=== PATIENT | female | born 1960 | race Caucasian/White ===

== ENCOUNTER → 2018-12-16 | Outpatient (CLI) | payer OTHER, SELFPAY ==
[2018-11-29 15:04] VITALS: BMI 41.6
--- NOTE | 2018-12-16 | IMM_PTH ---
PATIENT: SALINA ALDRICH LOC: [facility] U#:[id number] AGE/SX: 58/F ROOM: RE12/16/[address]: Dr. Alphonse Boudreaux MD : 1960 BED: DIS: 12/16/2018 SPEC #: [id number] RECD: 12/20/18 12:23 STATUS: SOCORRO REJuju #: [id number] NAYA: 12/16/18 00:[address]: Alphonse Boudreaux DEPT: IMMUNOHISTOCHEMISTRY RECD BY: Mary Farooq ENTERED: 12/20/18 12:24 SP TYPE: IMMUNO OTHR DR: Dr. Araceli Sanchez MD Tissues: Stomach, NOS Procedures: H Pylori (initial) CD20 (add) CD45 (add) CD5 (add) CD79A (add) CD3 (initial) PHYSICIAN & INSTITUTION [place] [id number] SPECIMEN INFORMATION: Tissue Source: Gastric antrum body Clinical Info: Abdominal pain Specimen Number: [id number] CPT code: 16836, 58000 x5 METHODOLOGY: Deparaffinized sections of prefer/formalin-fixed tissue or PAP/DQ stained slides are incubated with monoclonal/polyclonal antibodies/oligonucleotide probes. Localization is made via biotin free immunoperoxidase method. Appropriate controls are performed and reacted as expected. Results on target cell population are indicated in the following table: RESULTS: ANTIBODY / CLONE RESULT CD3 (PS1) positive CD5 (SP10) positive CD20 (L26) positive CD79a (11E3) positive CD45 (RP2/18) positive H Pylori (polyclonal) negative These tests were developed and their performance characteristics determined by [facility]. They may not have been cleared or approved by the U.S. Food and Drug Administration. The FDA has determined that such clearance or approval is not necessary. INTERPRETATION: Gastric antrum/body, biopsy: Lymphoid aggregate, polytypic in nature, favor benign. This case has been reviewed in consultation with Dr. Villegas who concurs with the above diagnosis. SJ:pamela 12/21/18
--- NOTE | 2018-12-16 07:58 | EGD_PTH ---
PATIENT: SALINA ALDRICH [facility] U#:[id number] AGE/SX: 58/F ROOM: RE12/16/[address]: Dr. Alphonse Boudreaux MD : 1960 BED: DIS: 12/16/2018 SPEC #: [id number] RECD: 12/16/18 15:21 STATUS: SOCORRO REJuju #: [id number] NAYA: 12/16/18 07:[address]: Alphonse Boudreaux DEPT: SURGICAL PATHOLOGY RECD BY: Palu Shrestha ENTERED: 12/19/18 10:21 SP TYPE: EGD BIOPSY OT DR: Dr. Araceli Sanchez MD [facility] Tissues: Gastric mucous membrane Procedures: Surgery Specimen Level IV HEADER OPERATION: EGD with biopsy PRE-OP DIAGNOSIS: Abdominal pain TISSUE SUBMITTED: Gastric antrum body MICROSCOPIC DIAGNOSIS Gastric antrum body, biopsy: Moderate chronic gastritis. Lymphoid aggregate formation, favor benign. See comment. SJ:pamela 12/20/18 COMMENT Lymphoepithelial lesions are also noted. Immunohistochemistry ([id number]) supports the above diagnosis, and negative for H. pylori organisms. Correlation with clinical, endoscopic findings and appropriate follow up are necessary. Case has been reviewed in consultation with Dr. Villegas who concurs with the above diagnosis. IDC:AM MICROSCOPIC DESCRIPTION Slides are reviewed. GROSS DESCRIPTION Received in fixative is one container labeled with the patient's name and designated gastric antrum body. The specimen consists of multiple irregular fragments of light welsh soft tissue that in aggregate measure 2 x 0.4 x 0.1 cm. The specimen is totally submitted in one cassette. / CAM:pamela 12/19/18 TC:3 CPT: 78020
== END | disposition home or self-care (01) ==
LOC: LABSPEC 15:44
PROVIDERS: Family Provider Internal Medicine; PCP Internal Medicine; Referring Provider Internal Medicine Gastroenterology; Visit Provider Internal Medicine Gastroenterology
DX: R10.9 Unspecified abdominal pain (principal)
CPT/HCPCS: 88305; 88341; 88342

== ENCOUNTER → 2019-01-04 | Outpatient (CLI) | payer OTHER, SELFPAY ==
[2018-11-29 15:04] VITALS: BMI 41.6
[2019-01-04 12:22] LABS: Absolute Lymphocyte Count 2.45 X10^3/ul (0.83-4.51); Absolute Neutrophil Count 2.8 X10^3/uL (2.0-7.7); Basophil# 0.02 X10^3/uL; Basophil% 0.3 % (0-1); Eosinophil# 0.18 X10^3/uL; Hematocrit 39.5 % (37-47); Hemoglobin 12.2 g/dl (12.0-15.0); Lymphocyte # 2.45 X10^3/ul (4.0); Lymphocyte % 41.5 % (19-41); Mean Corp Hgb Conc 30.9 g/gl (32-36); Mean Corpuscular Hgb 26.6 pg (27.0-32.0); Mean Corpuscular Volume 86.1 fL (81-99); Mean Platelet Vol. 10.4 fl (6.2-12.0); Monocyte# 0.46 X10^3/uL; Monocyte% 7.8 % (0-10); Neutrophil # 2.79 X10^3/uL (2.7-7.7); Neutrophil % 47.2 % (47-70); Platelet Count 325 K/mm3 (150-450); RBC Distribution Width CV 13.6 % (11.6-14.6); Red Blood Count 4.59 M/mm3 (4.2-5.4); White Blood Count 5.9 K/mm3 (4.4-11.0)
[2019-01-04 12:28] LABS: POSITIVE COUNT NO; POSITIVE DIFFERENTIAL NO; POSITIVE MORPHOLOGY NO
[2019-01-04 12:37] LABS: AST(SGOT) 24 U/L (15-37); Alanine Aminotransfer ALT/SGPT 38 U/L (13-56); Albumin, Serum 3.7 g/dL (3.2-5.0); Alkaline Phosphatase 60 U/L (45-117); Anion Gap 6 (5-15); BUN 17 mg/dL (7-18); Calcium,Total 8.5 mg/dL (8.5-10.1); Chloride 107 mmol/L (98-107); Cholesterol 165 mg/dL (200); EST Glomerular Filtration Rate 61 mL/min (>60); Est Glom Filt Rate - Afr Amer 73 mL/min (>60); Globulin 3.7 g/dL (2.2-4.2); Glucose 105 mg/dL (74-106); High Density Lipoprotein 55 mg/dL; Potassium 4.5 mmol/L (3.5-5.1); Protein, Total 7.4 g/dL (6.4-8.2); Sodium Level 140 mmol/L (136-145); Triglycerides 74 mg/dL; Very Low Density Lipoprotein 15 mg/dL (5-40)
[2019-01-04 12:58] LABS: Hemoglobin A1c 5.5 % (4.2-6.3)
== END | disposition home or self-care (01) ==
LOC: BIMLAB 08:11
PROVIDERS: Family Provider Internal Medicine; PCP Internal Medicine; Visit Provider Internal Medicine
DX: I10 Essential (primary) hypertension (principal); K21.9 Gastro-esophageal reflux disease without esophagitis; R73.03 Prediabetes
CPT/HCPCS: 36415; 80053; 80061; 83036; 85025

== ENCOUNTER → 2019-02-03 | Outpatient (CLI) | payer OTHER, SELFPAY ==
[2019-01-10 10:05] VITALS: BMI 41.6
--- NOTE | 2019-02-02 17:00 | BI_ITS ---
MAMMOGRAPHY - BILATERAL SCREENING REASON FOR EXAM: Female, 58 years old. Routine annual screening examination. PERTINENT HISTORY: Mother with breast cancer. TECHNIQUE: Digital bilateral breast pauly (3D mammographic acquisition) in the CC and MLO projections. 2-D mediolateral oblique (MLO) and craniocaudad (CC) views of both breasts were obtained. CAD: Full Field Digital Mammography with Computer Added Detection was performed. COMPARISON: Comparison is made with prior study dated May 26, 2017 and August 08, 2015. FINDINGS: Breast Composition: There are scattered areas of fibroglandular density. There are no dominant masses or suspicious calcifications. No other significant abnormalities are identified. There has been no significant change since the prior study. BI/SCREEN MAMM (CAD) W/PAULY BILAT IMPRESSION: Stable bilateral screening mammogram. Yearly follow-up mammogram recommended. (A) ASSESSMENT CATEGORY: BIRADS Category 1: Negative. A letter regarding these results will be sent to the patient by the facility within 30 days. Approximately 10% of breast cancers are not detected by mammography. A normal mammogram should not delay biopsy of a clinically suspicious abnormality. [id number] Electronically Signed: Elkin Rae, at 8:31 EDT , Service support ,
== END | disposition home or self-care (01) ==
LOC: OPBI 07:42
PROVIDERS: Family Provider Internal Medicine; PCP Internal Medicine; Referring Provider Internal Medicine; Visit Provider Internal Medicine
DX: Z00.00 Encounter for general adult medical examination without abnormal findings (principal); Z12.31 Encounter for screening mammogram for malignant neoplasm of breast
CPT/HCPCS: 77063; 77067

== ENCOUNTER → 2019-05-09 08:53 | Outpatient (CLI) | payer OTHER, SELFPAY ==
[2019-05-09 08:36] VITALS: BMI 40.2
[2019-05-09 13:12] LABS: Anion Gap 7 (5-15); BUN 14 mg/dL (7-18); BUN/Creat Ratio 13.3 RATIO (10-20); Calcium,Total 8.7 mg/dL (8.5-10.1); Chloride 106 mmol/L (98-107); Creatinine, Serum 1.05 mg/dL (0.55-1.02); EST Glomerular Filtration Rate 57 mL/min (>60); Est Glom Filt Rate - Afr Amer 69 mL/min (>60); Glucose 99 mg/dL (74-106); Potassium 4.3 mmol/L (3.5-5.1); Sodium Level 138 mmol/L (136-145)
== END ==
PROVIDERS: Family Provider Internal Medicine; PCP Internal Medicine; Visit Provider Internal Medicine
DX: I10 Essential (primary) hypertension (principal)
CPT/HCPCS: 36415; 80048

== ENCOUNTER → 2019-06-21 07:52 | Outpatient (CLI) | payer OTHER, SELFPAY ==
[2019-05-09 08:36] VITALS: BMI 40.2
--- NOTE | 2019-06-21 07:54 | CT_ITS ---
STUDY: CT ABDOMEN AND PELVIS WITH CONTRAST REASON FOR EXAM: Female, 59 years old. Mesenteric lymphadenopathy. RADIATION DOSAGE (If Supplied By Facility): CTDIvol = ( 16.82 ) mGy, DLP = ( 1173.49 ) mGycm TECHNIQUE: Transaxial images were obtained from the dome of the diaphragm to the symphysis pubis with oral contrast. IV/Oral Isovue 370 100cc was administered. Sagittal and coronal images were reconstructed. Individualized dose optimization techniques were used for this CT. COMPARISON: Comparison is made with prior study dated August 12, 2015. FINDINGS: The visualized lung bases are unremarkable. The visualized portions of the heart are within normal limits. There is decreased attenuation of the liver consistent with steatosis. Normal gallbladder and extrahepatic biliary system. Normal spleen. Normal pancreas. Normal bilateral adrenal glands. Normal right kidney. Normal left kidney. There is a small hiatal hernia. Normal small intestine. Normal colon. The appendix is visualized and appears normal. Normal abdominal aorta. Normal inferior vena cava. There is borderline retroperitoneal lymphadenopathy with enlarged nodes no greater than 10mm in the short axis diameter. Normal urinary bladder. There is a small umbilical hernia containing fat. There are degenerative changes of the visualized lumbar spine. Stable 3 cm exostosis along the posterior aspect of the left hemisacrum. CT/Abdomen/Pelvis WITH Contrast IMPRESSION: Fatty attrition of the liver. No acute abnormality is seen. Electronically Signed: Elkin Rae, at 15:13 EDT , Service support ,
== END ==
PROVIDERS: Family Provider Internal Medicine; PCP Internal Medicine; Referring Provider Internal Medicine; Visit Provider Internal Medicine
DX: R59.0 Localized enlarged lymph nodes (principal); R93.5 Abnormal findings on diagnostic imaging of other abdominal regions, including retroperitoneum
CPT/HCPCS: 74177; Q9967

== ENCOUNTER → 2019-08-08 08:40 | Outpatient (CLI) | payer OTHER, SELFPAY ==
[2019-08-08 08:21] VITALS: BMI 40.2
[2019-08-08 12:21] LABS: Anion Gap 5 (5-15); BUN 18 mg/dL (7-18); BUN/Creat Ratio 16.4 RATIO (10-20); Calcium,Total 8.3 mg/dL (8.5-10.1); Chloride 109 mmol/L (98-107); EST Glomerular Filtration Rate 54 mL/min (>60); Est Glom Filt Rate - Afr Amer 66 mL/min (>60); Glucose 93 mg/dL (74-106); Potassium 3.9 mmol/L (3.5-5.1); Sodium Level 141 mmol/L (136-145)
[2019-08-08 12:27] LABS: Hemoglobin A1c 5.8 % (4.2-6.3)
== END ==
PROVIDERS: Family Provider Internal Medicine; PCP Internal Medicine; Visit Provider Internal Medicine
DX: I10 Essential (primary) hypertension (principal); R73.03 Prediabetes
CPT/HCPCS: 36415; 80048; 83036

== ENCOUNTER → 2019-10-23 | Outpatient (CLI) | payer OTHER, SELFPAY ==
[2019-10-23 15:01] VITALS: BMI 40.2
[2019-10-25 20:21] LABS: HPV APTIMA, High Risk Negative (Negative)
== END | disposition home or self-care (01) ==
LOC: LABSPEC 16:19
PROVIDERS: PCP Internal Medicine; Referring Provider Nurse Practitioner Women's Health; Visit Provider Nurse Practitioner Women's Health
DX: Z12.4 Encounter for screening for malignant neoplasm of cervix (principal)
CPT/HCPCS: 87624; 88175; G0145

== ENCOUNTER 2020-04-17 13:36 | Emergency (ER) | payer OTHER, SELFPAY ==
[2019-10-23 15:01] VITALS: BMI 40.2
[2020-04-17 13:38] VITALS: BP 149/95; PULSE 98; RESP 14; TEMP 36.4; O2SAT 98; BMI 45.3
[2020-04-17 13:43] VITALS: BP 149/95; PULSE 98; RESP 17; O2SAT 97
--- NOTE | 2020-04-17 14:34 | RAD_ITS ---
STUDY: X-RAY - LEFT ELBOW REASON FOR EXAM: Female, 59 years old. Pt. fell, pain TECHNIQUE: 2 view(s) of the elbow. COMPARISON: None. FINDINGS: Acute comminuted posteriorly displaced oblique fracture of the proximal ulna including the olecranon. Normal radiocapitellar and ulnotrochlear articulations. The soft tissue structures are unremarkable. RAD/Elbow min 3 Views IMPRESSION: Acute comminuted posteriorly displaced oblique fracture the proximal ulna. Electronically Signed: Zak Seay MD at 14:53 EDT Tel , Service support ,
--- NOTE | 2020-04-17 14:39 | ED.DCSUM_ITS ---
History of Present Illness Chief Complaint: Fall Informant: Patient Onset: Today Narrative: 59-year-old female presenting with left elbow pain. She states she had a mechanical fall and fell directly on her left elbow. She denies head injury or LOC. She states she was unable to get up due to the elbow pain. She states EMS was there within 5 to 6 minutes and helped her up after putting a splint on. - Past Medical History (1) Family history of Bedolla syndrome Status: Acute Comment: Maternal uncle-patient tested negative (2) Borderline type 2 diabetes mellitus Status: Chronic (3) Fatty infiltration of liver Status: Chronic (4) GERD (gastroesophageal reflux disease) Status: Chronic (5) Hypertension Status: Chronic Past Medical History - Allergies and Home Meds Allergies/Adverse Reactions: Allergies No Known Allergies Allergy (Verified 04/17/20 13:42) Primary Care Physician: Araceli Sanchez MD [Primary Care Provider] - Prior records reviewed: Yes Past Medical History: - - Reviewed under problem list Surgical History: noncontributory Smoking Status: Never smoker Alcohol: None Drugs: None Review of Systems General: Denies: Chills, Fever, Sweats Eyes: Denies: Visual changes - bilaterally, Diplopia ENT: Denies: Rhinorrhea, Sore throat Cardiovascular: Denies: Chest pain, Palpitations Respiratory: Denies: Dyspnea, Cough, Dyspnea on exertion Genitourinary: Denies: Dysuria, Hematuria Musculoskeletal: Reports: Extremity Pain - Left elbow. Denies: Back pain Skin: Denies: Rash, Abscess Neurological: Denies: Headache Psych: Denies: Depression, Anxiety Physical Exam Vital Signs/Narrative: Vital Signs Temp Pulse Resp BP Pulse Ox 04/17/20 13:43 98 17 149/95 H 97 04/17/20 13:38 97.6 F L 98 14 149/95 H 98 Inital Vital Signs reviewed: Yes General: Well nourished, No Acute Distress Head: Normocephalic, Atraumatic Eyes: Perrl, EOMI Cardiovascular: Regular rate, Regular rhythm Respiratory: No distress Extremities: - - Tenderness to palpation over left olecranon and generally over the left elbow. There is deformity. Patient unable to move left elbow. Exam is limited due to pain when examining. Skin: Normal color, No rash Neurological: Alert, Oriented x3 Psychological: Normal affect Diagnostic/Tx/Re-eval Clinical Impression(s) from Imaging Studies Elbow X-Ray 04/17/20 14:34 IMPRESSION: Acute comminuted posteriorly displaced oblique fracture the proximal ulna. Electronically Signed: Zak Seay MD at 14:53 EDT Tel , Service support , - Medical Decision Making Patient presents with left elbow pain after mechanical fall. She is found to have proximal ulnar fracture per radiology. I did discuss the case with Dr. Alcala reviewed the films and felt this was an unstable fracture dislocation. She felt the small radius was dislocated and in conjunction with the ulnar fracture she felt this was not a case that she was amenable to treating. She recommended transfer to a place where they can perform necessary surgery for this. Initially she wanted me to place the person in a splint however I did discuss with her that I would have to consciously sedate her to perform this given her pain. Given that she will be transferred and consciously sedated again at outside facility for similar procedure she did and recommended that I just wrap her in place an immobilizer as much as possible until she can get definitive treatment. Patient was given morphine for pain control. She was consented to transfer and transferred in stable condition to [facility]. Impression: 1. Left ulnar fracture 2. Left radial head dislocation ED Disposition - Plan for ED Patient: Disposition: [facility] Referrals: Araceli Sanchez MD [Primary Care Provider] -
[2020-04-17] MEDS: Ondansetron 4 MG/2 ML Vial IV (15:33)
[2020-04-17] MEDS: Morphine 4 MG/ML Syringe IV ×2 (15:34→16:33)
[2020-04-17 16:36] VITALS: BP 138/86; PULSE 106; RESP 18; O2SAT 96
--- NOTE | 2020-04-17 16:37 | NURSING ---
CALLED [facility] FOR TRANSFER
== END 2020-04-17 17:59 | disposition short-term general hospital (02) ==
LOC: ED 15:17
PROVIDERS: Emergency Provider Student in an Organized Health Care Education/Training Program; PCP Internal Medicine
DX: S52.002A Unspecified fracture of upper end of left ulna, initial encounter for closed fracture (principal); S53.005A Unspecified dislocation of left radial head, initial encounter; W19.XXXA Unspecified fall, initial encounter; Y93.9 Activity, unspecified; Y92.9 Unspecified place or not applicable; I10 Essential (primary) hypertension; K76.0 Fatty (change of) liver, not elsewhere classified; K21.9 Gastro-esophageal reflux disease without esophagitis; Z79.899 Other long term (current) drug therapy
CPT/HCPCS: 73080; 96374; 96375; 96376; 99284; A4216; J2405

== ENCOUNTER → 2021-04-28 08:36 | Outpatient (CLI) | payer OTHER, SELFPAY ==
--- NOTE | 2021-04-28 09:03 | BI_ITS ---
MAMMOGRAPHY - BILATERAL SCREENING 3-D TOMOSYNTHESIS REASON FOR EXAM: Female, 60 years old. screening PERTINENT HISTORY: No significant family history. TECHNIQUE: 2-D mammograms and 3-D Tomosynthesis of the breast (s) were performed. CAD was performed. COMPARISON: 02/02/2019 FINDINGS: The breast composition is composed of scattered fibroglandular density. Scattered benign calcifications are seen. No dense spiculated masses or suspicious microcalcifications are identified. No architectural distortion is identified. There is no skin thickening or retraction. There has been no significant change since the prior study. BI/SCRN MAMM (CAD)W/PAULY BILAT IMPRESSION: No mammographic signs of malignancy. Routine yearly mammograms recommended. ASSESSMENT CATEGORY: BIRADS Category 1: Negative. A letter regarding these results will be sent to the patient by the facility within 30 days. FOLLOW UP RECOMMENDATION: Yearly follow up mammogram recommended. (A) Approximately 10% of breast cancers are not detected by mammography. A normal mammogram should not delay biopsy of a clinically suspicious abnormality. Electronically Signed: Zak Seay MD at 10:14 EDT Tel , Service support ,
== END ==
PROVIDERS: PCP Internal Medicine; Visit Provider Internal Medicine
DX: Z12.31 Encounter for screening mammogram for malignant neoplasm of breast (principal)
CPT/HCPCS: 77063; 77067

== ENCOUNTER → 2021-05-14 11:39 | Outpatient (CLI) | payer OTHER, SELFPAY ==
[2021-05-14 14:58] LABS: Absolute Lymphocyte Count 2.72 X10^3/uL (0.83-4.51); Absolute Neutrophil Count 3.6 X10^3/uL (2.0-7.7); Basophil# 0.05 X10^3/uL; Basophil% 0.7 % (0-1); Eosinophil# 0.16 X10^3/uL; Eosinophils% 2.2 % (0-5); Hematocrit 44.7 % (37-47); Hemoglobin 13.7 g/dL (12.0-15.0); Lymphocyte # 2.72 X10^3/ul (0.83-4.51); Lymphocyte % 37.8 % (19-41); Mean Corp Hgb Conc 30.6 g/dL (32-36); Mean Corpuscular Hgb 27.8 pg (27.0-32.0); Mean Corpuscular Volume 90.7 fL (81-99); Mean Platelet Vol. 10.7 fl (6.2-12.0); Monocyte# 0.69 X10^3/uL; Monocyte% 9.6 % (0-10); NRBC Flagged by Analyzer 0 % (0-5); Neutrophil # 3.56 X10^3/uL (2.7-7.7); Neutrophil % 49.4 % (47-70); Platelet Count 323 K/mm3 (150-450); RBC Distribution Width CV 13.4 % (11.6-14.6); RBC Distribution Width SD 45.1 fl (35.1-43.9); Red Blood Count 4.93 M/mm3 (4.2-5.4); White Blood Count 7.2 K/mm3 (4.4-11.0)
[2021-05-14 15:29] LABS: Hemoglobin A1c 5.7 % (3.8-5.6)
[2021-05-14 15:36] LABS: ALB/GLOB Ratio 0.9 RATIO (0.9-2.4); AST(SGOT) 26 U/L (15-37); Alanine Aminotransfer ALT/SGPT 47 U/L (13-56); Albumin, Serum 3.6 g/dL (3.2-5.0); Alkaline Phosphatase 55 U/L (45-117); Anion Gap 5 (5-15); BUN 15 mg/dL (7-18); BUN/Creat Ratio 15.9 RATIO (10-20); Calcium,Total 8.8 mg/dL (8.5-10.1); Chloride 107 mmol/L (98-107); Cholesterol 198 mg/dL (200); Creatinine, Serum 0.94 mg/dL (0.55-1.02); EST Glomerular Filtration Rate 64 mL/min (>60); Est Glom Filt Rate - Afr Amer 78 mL/min (>60); Globulin 3.9 g/dL (2.2-4.2); Glucose 93 mg/dL (74-106); High Density Lipoprotein 64 mg/dL; Potassium 4.1 mmol/L (3.5-5.1); Protein, Total 7.5 g/dL (6.4-8.2); Sodium Level 140 mmol/L (136-145); Triglycerides 118 mg/dL; Very Low Density Lipoprotein 24 mg/dL (5-40)
== END ==
PROVIDERS: PCP Internal Medicine; Referring Provider Internal Medicine; Visit Provider Internal Medicine
DX: I10 Essential (primary) hypertension (principal); R73.03 Prediabetes
CPT/HCPCS: 36415; 80053; 80061; 83036; 85025

== ENCOUNTER → 2022-05-12 | Outpatient (CLI) | payer OTHER, SELFPAY ==
[2022-05-12 16:42] LABS: Absolute Lymphocyte Count 3.07 X10^3/uL (0.83-4.51); Absolute Neutrophil Count 4.2 X10^3/uL (2.0-7.7); Basophil# 0.05 X10^3/uL; Basophil% 0.6 % (0-1); Eosinophil# 0.24 X10^3/uL; Hematocrit 45.1 % (37-47); Hemoglobin 14.5 g/dL (12.0-15.0); Lymphocyte # 3.07 X10^3/ul (0.83-4.51); Mean Corp Hgb Conc 32.2 g/dL (32-36); Mean Corpuscular Hgb 28.7 pg (27.0-32.0); Mean Corpuscular Volume 89.1 fL (81-99); Mean Platelet Vol. 9.8 fl (6.2-12.0); Monocyte# 0.54 X10^3/uL; Monocyte% 6.7 % (0-10); NRBC Flagged by Analyzer 0 % (0-5); Neutrophil # 4.15 X10^3/uL (2.7-7.7); Neutrophil % 51.5 % (47-70); Platelet Count 302 K/mm3 (150-450); RBC Distribution Width CV 13.4 % (11.6-14.6); RBC Distribution Width SD 43.8 fl (35.1-43.9); Red Blood Count 5.06 M/mm3 (4.2-5.4); White Blood Count 8.1 K/mm3 (4.4-11.0)
[2022-05-12 18:32] LABS: AST(SGOT) 20 U/L (15-37); Alanine Aminotransfer ALT/SGPT 34 U/L (13-56); Albumin, Serum 3.7 g/dL (3.2-5.0); Alkaline Phosphatase 61 U/L (45-117); Anion Gap 6 (5-15); BUN 18 mg/dL (7-18); BUN/Creat Ratio 21.4 RATIO (10-20); Chloride 107 mmol/L (98-107); Cholesterol 200 mg/dL (200); Creatinine, Serum 0.84 mg/dL (0.55-1.02); EST Glomerular Filtration Rate 73 mL/min (>60); Est Glom Filt Rate - Afr Amer 88 mL/min (>60); Globulin 3.8 g/dL (2.2-4.2); Glucose 91 mg/dL (74-106); High Density Lipoprotein 64 mg/dL; Potassium 4.3 mmol/L (3.5-5.1); Protein, Total 7.5 g/dL (6.4-8.2); Sodium Level 140 mmol/L (136-145); Triglycerides 142 mg/dL; Very Low Density Lipoprotein 28 mg/dL (5-40)
== END | disposition home or self-care (01) ==
LOC: BIMLAB 15:51
PROVIDERS: PCP Internal Medicine; Referring Provider Internal Medicine; Visit Provider Internal Medicine
DX: I10 Essential (primary) hypertension (principal)
CPT/HCPCS: 36415; 80053; 80061; 85025

== ENCOUNTER → 2022-05-27 | Outpatient (CLI) | payer OTHER, SELFPAY ==
--- NOTE | 2022-05-27 10:31 | BI_ITS ---
MAMMOGRAPHY - BILATERAL SCREENING REASON FOR EXAM: Female, 62 years old. Routine annual screening examination. PERTINENT HISTORY: Mother with breast cancer. TECHNIQUE: Digital bilateral breast pauly (3D mammographic acquisition) in the CC and MLO projections. 2-D mediolateral oblique (MLO) and craniocaudad (CC) views of both breasts were obtained. CAD: Full Field Digital Mammography with Computer Added Detection was performed. COMPARISON: Comparison is made with prior study dated 04/28/2021 and 02/02/2019. FINDINGS: Breast Composition: There are scattered areas of fibroglandular density. There are no dominant masses or suspicious calcifications. No other significant abnormalities are identified. There has been no significant change since the prior study. BI/SCRN MAMM (CAD)W/PAULY BILAT IMPRESSION: Stable bilateral screening mammogram. Yearly follow-up mammogram recommended. (A) ASSESSMENT CATEGORY: BIRADS Category 1: Negative. A letter regarding these results will be sent to the patient by the facility within 30 days. Approximately 10% of breast cancers are not detected by mammography. A normal mammogram should not delay biopsy of a clinically suspicious abnormality. [id number] Electronically Signed: Elkin Rae MD at 11:39 EDT ,
--- NOTE | 2022-05-27 10:36 | BD_ITS ---
STUDY: DUAL ENERGY X-RAY ABSORPTIOMETRY / DXA REASON FOR EXAM: Female, 62 years old. Post Menopausal TECHNIQUE: Bone Mineral Density (BMD) measurements of lumbar spine and bilateral hips were obtained. COMPARISON: Comparison is made with prior examination dated 05/26/2017. FINDINGS: Lumbar Spine (L1-L4): g/cm2 (1.157) / T-score (0.7) / Z-score (2.2) Findings are suggestive of normal bone density with a low fracture risk. Left Femur Total: g/cm2 (0.901) / T-score (-0.3) / Z-score (0.7) Left Femoral Neck: g/cm2 (0.727) / T-score (-1.1) / Z-score (0.2) Right Femur Total: g/cm2 (0.919) / T-score (-0.2) / Z-score (0.8) Right Femoral Neck: g/cm2 (0.746) / T-score (-0.9) / Z-score (0.4) The T-Scores on the most recent prior examination were: Lumbar Spine (L1-L4): There has been worsening of bone density since the previous examination. Left Femur Total: which represents a worsening of 3.2%. Right Femur Total: which represents a worsening of 2%. BD/Dexa Bone Density Study IMPRESSION: The patient is considered osteopenic as outlined below according to World Glenn Organization (WHO) criteria with a low fracture risk. There has been worsening of bone density since the previous examination. Reference Information: The T-score is the number of standard deviations above or below the standard which is normal for young adults at their peak bone mineral density. The World Health Organization (WHO) interprets the T-scores as follows: Above -1 Normal bone density Between -1 and -2.5 Osteopenia Equal to / or below -2.5 Osteoporosis As a practical clinical guideline, osteopenia may be graded as follows: Mild -1 through -1.5 Moderate -1.6 through -2.0 Severe -2.1 through -2.4 The Z-score is the number of standard deviations above or below age-matched controls. A Z-score of less than -1.5 would be considered abnormal. References: 1. NIH Osteoporosis and Related Bone Diseases www osteo.org 2. International Society for Clinical Densitometry www iscd.org 3. National Osteoporosis Foundation www nof.org Electronically Signed: Elkin Rae MD at 13:47 EDT ,
== END | disposition home or self-care (01) ==
LOC: OPBD 10:28
PROVIDERS: PCP Internal Medicine; Visit Provider Internal Medicine
DX: Z12.31 Encounter for screening mammogram for malignant neoplasm of breast (principal); Z78.0 Asymptomatic menopausal state
CPT/HCPCS: 77063; 77067; 77080

== ENCOUNTER → 2023-08-27 | Outpatient (CLI) | payer OTHER, SELFPAY ==
--- OUTSIDE RECORDS SUMMARY | 2023-08-27 10:45 | XMS RPT_ITS | CCD ---
Author Name Unknown Address [address] [place] [id number] Organization [facility] Care Team Providers Care Cooling Room Attendant Name Role Phone Vanessa Moscoso DO Primary Care Provider [phone] Problems Problem Classification Problem Date Documented Da te Episodic/Chronic Other and unspecified benign neoplasm (5 sources) History of polyp of colon; Translations: [Personal history of colonic polyps] Onset: 09-22-2014 09-22-2014 Episodic Residual codes; unclassified (5 sources) FH: Autoimmune disease; Translations: [Family history of malignant neoplasm of digestive organs] Onset: 09-22-2014 09-22-2014 Episodic Results Test Name Value Interpretation Reference Range Facil ity Vital Signs Date Time Vital Sign Value Performing Clinician Faci lity 07-03-2022 11:47-0400 Body height 160 cm Neur [address] [place] [address] 07-03-2022 11:47-0400 Body weight 102.97 [address] [place] [address] 07-03-2022 11:47-0400 Diastolic blood pressure 85 mm[Hg] Neur [address] [place] [address] 07-03-2022 11:47-0400 Heart rate 81 /min Neur [address] [place] [address] 07-03-2022 11:47-0400 Respiratory rate 18 /min Neur 2 [facility] 07-03-2022 11:47-0400 SaO2% (BldA) [Mass fraction] 97 % Neur [address] [place] [address] 07-03-2022 11:47-0400 Systolic blood pressure 125 mm[Hg] Neur 2 [facility] Encounters Encounter Date Encounter Type Care Provider Facility Start: 08-16-2023 Telephone encounter Sonya Franks urology Procedures Date Procedure Procedure Detail Performing Clinician Start: 08-27-2010 Mammography Tahmina lezama Research Coordinator Plan of Treatment Date Care Activity Detail Author Start: 10-08-2024 Urine microalbumin profile DTa P,Tdap,Td Vaccine (2 - Td or Tdap) [facility] Start: 04-30-2023 Covid-19 Vaccine () Covid-19 Vaccine () [facility] Start: 04-30-2023 Influenza vaccination Influenza Vacc ine (#1) [facility] Start: 08-30-2022 [facility] Start: 04-30-2022 Influenza vaccination C [facility] Start: 08-30-2021 [facility] Start: 2021 RSV Vaccine (1 - 1-d ose 60+ series) RSV Vaccine (1 - 1-dose 60+ series) [facility] Start: 09-04-2015 HPV TESTING HPV TESTING [facility] Start: 09-04-2015 PAP TESTING PAP TESTING [facility] Start: 09-04-2015 Screening for malign ant neoplasm of cervix [facility] Start: 08-27-2011 Mammography MAMMOGRAM [facility] Start: 08-27-2011 Screening for malign ant neoplasm of breast Mammogram Screening [facility] Start: 2011 SHINGRIX VACCINE (1 of 2) SHINGRIX V ACCINE (1 of 2) [facility] Start: 2006 COLOGUARD (FIT-DNA) COLOGUARD (FIT-D NA) [facility] Start: 2006 Colonoscopy COLONOSCOPY [facility] Start: 2006 COLORECTAL CANCER SCREENING COLORECTAL CANCER SCREENING [facility] Start: [address] [facility] Start: 2006 DIABETES SCREEN DIABETES SCREEN [facility] Start: 2006 Diabetes Screening Diabetes Screenin g [facility] Start: 2006 FECAL OCCULT BLOOD FECAL OCCULT BLOO D [facility] Start: 2006 Lipid panel Lipid Screening [facility] Start: 2006 LIPID SCREEN LIPID SCREEN [facility] Start: 2006 Screening for malign ant neoplasm of colon [facility] Start: 2006 SIGMOIDOSCOPY SIGMOIDOSCOPY [facility] Start: 1980 Urine microalbumin profile DTAP,TDAP ,TD (1 - Tdap) [facility] Start: 1979 HEPATITIS C SCREENING HEPATITIS C SC REENING [facility] Start: 1979 Hepatitis C screening Hepatitis C [facility] Start: 1979 HIV SCREENING HIV SCREENING [facility] Start: 1979 HIV screening HIV Screening [facility] Start: 1973 Adult depression scr eening assessment DEPRESSION SCREENING [facility] Start: 1966 COVID-19 VACCINE (#1) COVID-19 VACCI NE (#1) [facility] Start: 1961 COVID-19 VACCINE (#1) COVID-19 VACCI NE (#1) [facility] Immunizations Immunization Date Immunization Notes Care Provider Fa beverly 06-08-2022 influenza virus vacc ine, unspecified formulation Sonya Juárez [facility] Payers Date Payer Category Payer Unknown [facility] [facility] [id number] 2021-Present [phone] [place] [address] PPO [id number] 2021 Unknown [facility] [id number] 2021-Present [id number] [place] [id number] PPO [id number] Social History Date Type Detail Facility Tobacco smoking stat [facility] Never smoked tobacco [facility] Start: 03-23-2015 End: 04-15-2022 Alcohol intake Current non-drinker of alcohol (finding) [facility] Start: 1960 Sex Assigned At Not on file C [facility] Start: 06-23-2022 End: 07-03-2022 Exposure to SARS-CoV-2 (event) Not sure [facility] Work Phone: Start: 04-15-2022 End: 09-25-2022 History of Social function [facility] Start: 04-15-2022 End: 09-25-2022 Tobacco use panel [facility] National Score (1-10 0), lower number is lower risk 64 [facility] Note 08-16-2023 Telephone Encounter - Sonya Juárez - 08/16/2023 12:04 PM EST Note Date & Type Note Facility 08-16-2023 Miscellaneous Notes Formattin g of this note might be different from the original. IRB [id number]. [facility] Brain Study ([facility]) Adult Health Clinical Nurse Specialist: Apple Tran MD, , Baljinder Raman MD, Value Advisor: Shelly Leal and Email:[email or web address] Spoke with Theodora Deleon to follow up about the [facility] ([facility]): Biomarkers and Predictors of Neurological Disorders IRB [id number]. Sonya Juárez scheduled Theodora Deleon for study on 09/10/23 at 3pm for Year 2 appointment. Sonya Juárez documented in this encounter [facility] History of Present illness Narrative 07-03-2022 [place], Research Coordinator - 07/03/2022 12:22 PM EDT Note Date & Type Note Facility 07-03-2022 History of Presen t illness Narrative DATE:July 03, 2022 PT. NAME: Theodora Deleon [facility]#: [id number] IRB #: [id number]. PROTOCOL: [facility] Brain Study Adult Health Clinical Nurse Specialist: Apple Tran MD, , Tristen Pineda, PhD, , Baljinder Raman MD, [facility] contact manager for study related questions: Shelly Phelpsison Subject continues to give consent for participation and for procedures related to study YES. Were there changes made to the informed consent since the last visit? NO. If yes, were changes reviewed and explained to subject? N/A Was a new copy of the informed consent signed, placed in the chart, placed in the study file and was a copy given to the patient? N/A Patient Identification was verified by asking the patients Name and Date Of : YES Time: 11:00AM Blood drawn with vacutainer and labs drawn per protocol. Butterfly removed after blood draw and secured with sterile gauze. Patient tolerated procedure well. [place], Research Coordinator documented in this encounter [facility] History of Present illness Narrative 07-03-2022 Dahlia Horton PA-C - 07/03/2022 8:30 AM EDT Note Date & Type Note Facility 07-03-2022 History of Presen t illness Narrative Result of Physical Exam Body System Eyes: Normal ,Corrective lenses for distance and reading, not currently using Ears, Nose, Mouth and Throat: Normal Cardiovascular: Normal Respiratory: Normal Gastrointestinal: Normal Genitourinary: Normal Musculoskeletal: Normal Integumentary: Normal Psychiatric: Not examined Handedness: Right hand Results of Mental Status Assessment Mental Assessments Attention: Abnormality Present: No Memory Working Memory: Abnormality Present: No Recent (Episodic) Memory: Abnormality Present: No Remote (Semantic) Memory: Abnormality Present: No Language Spontaneous Speech: Abnormality Present: No Comprehension: Abnormality Present: No Naming: Abnormality Present: No Repetition: Abnormality Present: No Reading: Abnormality Present: No Affect: Abnormality Present: No Craninal Nerve Assessment Visual Law: Normal EOM: Normal Nystagmus: Physiologic Pupils: Equal and reactive Ptosis: Absent Trigeminal: Normal CN VII: Normal CN VIII: Normal CN IX: Normal CN X: Normal CN XI: Normal CN XII: Normal Assessment of Motor and Bulk and Tones Motor Assessments Muscle bulk-global: Normal Muscle tone-global: Normal Motor Strength Assessment Shoulder flexion: Right 5 Left 5 Shoulder external rotation: Right 5 Left 5 Shoulder abduction: Right 5 Left 5 Elbow flexion: Right 5 Left 5 Elbow extension: Right 5 Left 5 Wrist flexion: Right 5 Left 5 Wrist extension: Right 5 Left 5 Finger flexion/block handler: Right 5 Left 5 Flexor pollicis longus: Right 5 Left 5 Abductor pollicis brevis: Right 5 Left 5 Hip flexion: Right 5 Left 5 Hip extension: Right 5 Left 5 Hip abduction: Right 5 Left 5 Hip adduction: Right 5 Left 5 Knee flexion: Right 5 Left 5 Knee extension: Right 5 Left 5 Ankle eversion: Right 5 Left 5 Ankle inversion: Right 5 Left 5 Ankle plantar flexion: Right 5 Left 5 Ankle dorsiflexion: Right 5 Left 5 Extensor halluces longus: Right 5 Left 5 Flexor digitorum longus: Right 5 Left 5 Reflexes - MRC Grading Method Biceps: Right 2+ Left 2+ Triceps: Right 2+ Left 2+ Brachioradialis: Right 2+ Left 2+ Patellar: Right 2+ Left 2+ Achilles: Right 2+ Left 2+ Plantar: Right Mute Left Mute Weakness?: NO Tremor?: Yes Type of Tremor: Intention Cerebellar/Coordination Assessment [id number]-[id number]: Abnormality present: No, Rapid Alternating Movements: Abnormality present: No, Jlhy-tl-Ucht: Abnormality present: No, Gait Gait-global assessment: Normal Sensory/Sensation Sensory System-globlal assessment: Normal Bradykinesia iPad 3 DATE:July 03, 2022 PT. NAME: Theodora Deleon [facility]#: [id number] IRB #: [id number]. PROTOCOL: [facility] Brain Study Adult Health Clinical Nurse Specialist: Apple Tran MD, , Tristen Pineda, PhD, , Baljinder Raman MD, [facility] contact manager for study related questions: Alecia Hayes Subject continues to give consent for participation and for procedures related to study YES. Were there changes made to the informed consent since the last visit? NO. If yes, were changes reviewed and explained to subject? N/A Was a new copy of the informed consent signed, placed in the chart, placed in the study file and was a copy given to the patient? N/A Patient Identification was verified by asking the patients Name and Date Of : YES Time:12:16 pm EKG/ECG was performed on patient. Patient tolerated procedure well. Dahlia Horton PA-C Tremor: Left sided intention tremor. No postural or rest tremor. Participant reports she has noticed left sided hand tremor, only with intention, over the past 1-2 weeks. Tremor is not impacting daily activities. No recent dropping items, falls, loss of smell, GI/ disturbances, acting out dreams. Maternal grandfather diagnosed with Parkinson's. Dahlia Horton PA-C documented in this encounter [facility] Note 06-15-2022 Telephone Encounter - Tahmina Holpit, Research Coordinator - 06/15/2022 1:43 PM EDT Note Date & Type Note Facility 06-15-2022 Miscellaneous Notes Formattin g of this note might be different from the original. IRB [id number]. [facility] Brain Study ([facility]) Adult Health Clinical Nurse Specialist: Apple Tran MD, , Tristen Pineda, PhD, , Baljinder Raman MD, Value Advisor: Alecia Hayes and Email:[email or web address] Research Coordinator called and contacted Theodora Deleon on June 15, 2022 to reminded patient of appointment with the [facility] Brain Study, Tahmina Machuca Research Coordinator also let pt. Know about the option to DocuSign the constant form or Sign in person. Research Coordinator gave patient Contact information for if the patient had any questions about the study and or their appointment. documented in this encounter [facility] Note 01-13-2022 Telephone Encounter - Tahmina Machuca Research Coordinator - 01/13/2022 12:37 PM EDT Note Date & Type Note Facility 01-13-2022 Miscellaneous Notes IRB [id number]. [facility] Brain Study ([facility]) Adult Health Clinical Nurse Specialist: Apple Tran MD, , Tristen Pineda, PhD, , Baljinder Raman MD, Value Advisor: Alecia Hayes and Email:[email or web address] Spoke with Theodora Deleon to follow up about the [facility] Brain Study ([facility]): Biomarkers and Predictors of Neurological Disorders IRB [id number]. Tahmina Machuca Research Coordinator scheduled Theodora Deleon for study on 07/02/22 at 5:30 pm. Armando Herrera documented in this encounter [facility] Evaluation note Note Date & Type Note Facility documented in this encounter [facility] Summary Purpose Family History No Family History Records FoundNo Family History Records Found Advance Directives No Advanced Directives Records FoundNo Advanced Directives Records Found Additional Source Comments INFORMATION SOURCE (unrecogn ized section and content) DATE CREATED AUTHOR AUTHOR'S GODWIN STACK 08/27/2023 [facility] Source Comments (unrecognize d section and content) In the event this informatio n is protected by the Federal Confidentiality of Alcohol and Drug Abuse Patient Records regulations: The Federal rules restrict any use of the information to criminally investigate or prosecute any alcohol or drug abuse patient.[facility] the event this information is protected by the Federal Confidentiality of Alcohol and Drug Abuse Patient Records regulations: The Federal rules restrict any use of the information to criminally investigate or prosecute any alcohol or drug abuse patient.[facility] the event this information is protected by the Federal Confidentiality of Alcohol and Drug Abuse Patient Records regulations: The Federal rules restrict any use of the information to criminally investigate or prosecute any alcohol or drug abuse patient.[facility] the event this information is protected by the Federal Confidentiality of Alcohol and Drug Abuse Patient Records regulations: The Federal rules restrict any use of the information to criminally investigate or prosecute any alcohol or drug abuse patient.[facility] the event this information is protected by the Federal Confidentiality of Alcohol and Drug Abuse Patient Records regulations: The Federal rules restrict any use of the information to criminally investigate or prosecute any alcohol or drug abuse patient.[facility] Reason for Visit (unrecogniz ed section and content) Reason Comments Informed Consent Reason Comments Appointment IRB Care Teams (unrecognized sec tion and content) Cooling Room Attendant Relationship Specialty Start Date End Date Vanessa Moscoso DO PCP - General Internal Medicine 10/30/14 Cooling Room Attendant Relationship Specialty Start Date End Date Vanessa Moscoso DO PCP - General Internal Medicine 10/30/14 FOR RECORDS PERTAINING TO PATIENTS WHO ARE OR HAVE BEEN ENROLLED IN A CHEMICAL DEPENDENCY/SUBSTANCEABUSE PROGRAM, SOME INFORMATION MAY BE OMITTED. This clinical summary was aggregated from multiple sources. Caution should be exercised in using it in the provision of clinical care. This summary normalizes information from multiple sources, and as a consequence, information in this document may materially change the coding, format and clinical context of patient data. In addition, data may be omitted in some cases. CLINICAL DECISIONS SHOULD BE BASED ON THE PRIMARY CLINICAL RECORDS. [facility]. provides no warranty or guarantee of the accuracy or completeness of information in this document.
[2023-08-27 12:26] LABS: Absolute Lymphocyte Count 2.48 X10^3/uL (0.83-4.51); Basophil# 0.05 X10^3/uL; Basophil% 0.8 % (0-1); Eosinophil# 0.17 X10^3/uL; Eosinophils% 2.7 % (0-5); Hematocrit 44.6 % (37-47); Hemoglobin 14.1 g/dL (12.0-15.0); Lymphocyte # 2.48 X10^3/ul (0.83-4.51); Lymphocyte % 39.4 % (19-41); Mean Corp Hgb Conc 31.6 g/dL (32-36); Mean Corpuscular Hgb 27.6 pg (27.0-32.0); Mean Corpuscular Volume 87.5 fL (81-99); Mean Platelet Vol. 10.2 fl (6.2-12.0); Monocyte# 0.54 X10^3/uL; Monocyte% 8.6 % (0-10); NRBC Flagged by Analyzer 0 % (0-5); Neutrophil # 3.04 X10^3/uL (2.7-7.7); Neutrophil % 48.2 % (47-70); Platelet Count 296 K/mm3 (150-450); RBC Distribution Width CV 13.5 % (11.6-14.6); White Blood Count 6.3 K/mm3 (4.4-11.0)
[2023-08-27 12:44] LABS: AST(SGOT) 22 U/L (15-37); Alanine Aminotransfer ALT/SGPT 39 U/L (13-56); Albumin, Serum 3.6 g/dL (3.2-5.0); Alkaline Phosphatase 53 U/L (45-117); Anion Gap 6 (5-15); BUN 16 mg/dL (7-18); BUN/Creat Ratio 15.8 RATIO (10-20); Calcium,Total 9.3 mg/dL (8.5-10.1); Chloride 106 mmol/L (98-107); Cholesterol 197 mg/dL (200); Creatinine, Serum 1.01 mg/dL (0.55-1.02); EST Glomerular Filtration Rate 59 mL/min (>60); Est Glom Filt Rate - Afr Amer 71 mL/min (>60); Globulin 3.7 g/dL (2.2-4.2); Glucose 102 mg/dL (74-106); High Density Lipoprotein 65 mg/dL; Protein, Total 7.3 g/dL (6.4-8.2); Sodium Level 139 mmol/L (136-145); Triglycerides 100 mg/dL; Very Low Density Lipoprotein 20 mg/dL (5-40)
== END | disposition home or self-care (01) ==
LOC: BIMLAB 10:19
PROVIDERS: PCP Internal Medicine; Referring Provider Internal Medicine; Visit Provider Internal Medicine
DX: I10 Essential (primary) hypertension (principal)
CPT/HCPCS: 36415; 80053; 80061; 85025

== ENCOUNTER → 2023-12-01 | Outpatient (CLI) | payer OTHER, SELFPAY ==
[2023-12-01 15:37] LABS: Hemoglobin A1c 5.8 % (3.8-5.6)
[2023-12-01 15:39] LABS: AST(SGOT) 23 U/L (15-37); Alanine Aminotransfer ALT/SGPT 46 U/L (13-56); Albumin, Serum 3.7 g/dL (3.2-5.0); Alkaline Phosphatase 53 U/L (45-117); Anion Gap 4 (5-15); BUN 13 mg/dL (7-18); BUN/Creat Ratio 13.7 RATIO (10-20); Calcium,Total 8.9 mg/dL (8.5-10.1); Chloride 109 mmol/L (98-107); Creatinine, Serum 0.95 mg/dL (0.55-1.02); EST Glomerular Filtration Rate 63 mL/min (>60); Est Glom Filt Rate - Afr Amer 77 mL/min (>60); Globulin 3.6 g/dL (2.2-4.2); Glucose 123 mg/dL (74-106); Potassium 4.4 mmol/L (3.5-5.1); Protein, Total 7.3 g/dL (6.4-8.2); Sodium Level 139 mmol/L (136-145)
== END | disposition home or self-care (01) ==
LOC: BIMLAB 13:51
PROVIDERS: PCP Internal Medicine; Referring Provider Internal Medicine; Visit Provider Internal Medicine
DX: I10 Essential (primary) hypertension (principal); R73.03 Prediabetes
CPT/HCPCS: 36415; 80053; 83036

== ENCOUNTER → 2024-07-05 | Outpatient (CLI) | payer OTHER, SELFPAY ==
[2024-07-05 17:19] LABS: Anion Gap 4 (5-15); BUN 15 mg/dL (7-18); BUN/Creat Ratio 16.1 RATIO (10-20); Calcium,Total 8.9 mg/dL (8.5-10.1); Chloride 108 mmol/L (98-107); Creatinine, Serum 0.93 mg/dL (0.55-1.02); EST Glomerular Filtration Rate 65 mL/min (>60); Est Glom Filt Rate - Afr Amer 78 mL/min (>60); Glucose 100 mg/dL (74-106); Potassium 4.6 mmol/L (3.5-5.1); Sodium Level 140 mmol/L (136-145)
== END | disposition home or self-care (01) ==
LOC: BIMLAB 14:11
PROVIDERS: PCP Internal Medicine; Referring Provider Internal Medicine; Visit Provider Internal Medicine
DX: I10 Essential (primary) hypertension (principal); R73.03 Prediabetes
CPT/HCPCS: 36415; 80048; 83036

== ENCOUNTER → 2024-08-07 | Outpatient (CLI) | payer OTHER, SELFPAY | END | disposition home or self-care (01) | LOC: LABSPEC 10:56 | PROVIDERS: PCP Internal Medicine; Referring Provider Nurse Practitioner Family; Visit Provider Nurse Practitioner Family | DX: B35.1 Tinea unguium (principal); L03.032 Cellulitis of left toe; L82.1 Other seborrheic keratosis | CPT/HCPCS: 87101 ==

== ENCOUNTER → 2024-09-22 | Outpatient (CLI) | payer OTHER, SELFPAY ==
[2024-09-22 15:13] LABS: Absolute Lymphocyte Count 1.99 X10^3/uL (0.83-4.51); Absolute Neutrophil Count 4.7 X10^3/uL (2.0-7.7); Basophil# 0.05 X10^3/uL; Basophil% 0.7 % (0-1); Eosinophil# 0.15 X10^3/uL; Hematocrit 43.2 % (37-47); Hemoglobin 13.8 g/dL (12.0-15.0); Lymphocyte # 1.99 X10^3/ul (0.83-4.51); Lymphocyte % 26.6 % (19-41); Mean Corp Hgb Conc 31.9 g/dL (32-36); Mean Corpuscular Hgb 27.8 pg (27.0-32.0); Mean Corpuscular Volume 87.1 fL (81-99); Mean Platelet Vol. 9.6 fl (6.2-12.0); Monocyte# 0.56 X10^3/uL; Monocyte% 7.5 % (0-10); NRBC Flagged by Analyzer 0 % (0-5); Neutrophil # 4.69 X10^3/uL (2.7-7.7); Neutrophil % 62.8 % (47-70); Platelet Count 274 K/mm3 (150-450); RBC Distribution Width CV 13.4 % (11.6-14.6); RBC Distribution Width SD 42.7 fl (35.1-43.9); Red Blood Count 4.96 M/mm3 (4.2-5.4); White Blood Count 7.5 K/mm3 (4.4-11.0)
[2024-09-22 17:29] LABS: ALB/GLOB Ratio 0.9 RATIO (0.9-2.4); AST(SGOT) 25 U/L (15-37); Alanine Aminotransfer ALT/SGPT 49 U/L (13-56); Albumin, Serum 3.6 g/dL (3.2-5.0); Alkaline Phosphatase 58 U/L (45-117); Anion Gap 7 (5-15); BUN 15 mg/dL (7-18); BUN/Creat Ratio 13.8 RATIO (10-20); Calcium,Total 8.9 mg/dL (8.5-10.1); Chloride 102 mmol/L (98-107); Cholesterol 174 mg/dL (200); Creatinine, Serum 1.09 mg/dL (0.55-1.02); EST Glomerular Filtration Rate 54 mL/min (>60); Est Glom Filt Rate - Afr Amer 65 mL/min (>60); Glucose 151 mg/dL (74-106); High Density Lipoprotein 62 mg/dL; Potassium 4.4 mmol/L (3.5-5.1); Protein, Total 7.6 g/dL (6.4-8.2); Sodium Level 136 mmol/L (136-145); Triglycerides 112 mg/dL; Very Low Density Lipoprotein 22 mg/dL (5-40)
== END | disposition home or self-care (01) ==
LOC: BIMLAB 14:10
PROVIDERS: PCP Internal Medicine; Referring Provider Internal Medicine; Visit Provider Internal Medicine
DX: I10 Essential (primary) hypertension (principal); R73.03 Prediabetes
CPT/HCPCS: 36415; 80053; 80061; 85025

== ENCOUNTER → 2025-06-06 | Outpatient (CLI) | payer OTHER, SELFPAY ==
[2025-06-06 15:08] LABS: Hematocrit 43.8 % (37-47); Hemoglobin 14.3 g/dL (12.0-15.0); Immature Granulocytes Count 0.020 X10^3/uL (0.0-0.0); Mean Corp Hgb Conc 32.6 g/dL (32-36); Mean Corpuscular Volume 85.0 fL (81-99); Mean Platelet Vol. 10.3 fl (6.2-12.0); NRBC Flagged by Analyzer 0 % (0-5); Platelet Count 316 K/mm3 (150-450); RBC Distribution Width CV 13.6 % (11.6-14.6); RBC Distribution Width SD 42.3 fl (35.1-43.9); Red Blood Count 5.15 M/mm3 (4.2-5.4); White Blood Count 8.5 K/mm3 (4.4-11.0)
[2025-06-06 15:26] LABS: AST(SGOT) 30 U/L (<=31); Alanine Aminotransfer ALT/SGPT 38 U/L (<=34); Albumin, Serum 4.3 g/dL (3.4-4.8); Alkaline Phosphatase 67 U/L (35-104); Anion Gap 13 (5-15); BUN 14 mg/dL (4-19); BUN/Creat Ratio 14.2 RATIO (10-20); Calcium,Total 9.5 mg/dL (7.6-11.0); Carbon Dioxide 22.6 mmol/L (21.0-32.0); Chloride 104 mmol/L (98-108); Cholesterol 199 mg/dL (<=200); Globulin 3.2 g/dL (2.2-4.2); Glucose 100 mg/dL (70-99); Low Density Lipoprotein Calc. 97 mg/dL; Potassium 4.4 mmol/L (3.3-5.1); Triglycerides 171 mg/dL; Very Low Density Lipoprotein 34 mg/dL (5-40); cholesterol:hdl ratio screen 2.94
== END | disposition home or self-care (01) ==
LOC: MTLAB 12:33
PROVIDERS: PCP Internal Medicine; Referring Provider Internal Medicine; Visit Provider Internal Medicine
DX: R73.03 Prediabetes (principal); I10 Essential (primary) hypertension; R00.2 Palpitations
CPT/HCPCS: 36415; 80053; 80061; 83036; 84439; 84443; 85025

== ENCOUNTER → 2025-06-22 | Outpatient (CLI) | payer OTHER, SELFPAY ==
--- NOTE | 2025-06-22 16:51 | STRESSREP ---
Stress Test Report Exercise stress test. 65-year-old lady with a history of chest pain. Stress protocol: Resting EKG demonstrates normal sinus rhythm with a rate of 84 bpm resting blood pressure is 138/88 mmHg. The patient exercised according to the regular Henri protocol for a total duration of 6 minutes attaining a maximum heart rate of 164 bpm which was 105% of maximum predicted heart rate; the maximum workload was 7 metabolic equivalents. At rest there were no ST or T wave changes noted to suggest ischemia and at peak exercise upsloping ST changes only were noted which did not meet the criteria for ischemia. No clinical angina was noted the test was terminated due to the target heart rate being achieved/fatigue. The peak blood pressure was 210/82 mmHg. Rate-pressure product was 27,500. Exaggerated blood pressure response to exercise is noted. Conclusion: Exercise stress test with no EKG criteria for ischemia at a moderate workload
== END | disposition home or self-care (01) ==
LOC: CVS 09:54
PROVIDERS: PCP Internal Medicine; Referring Provider Internal Medicine; Visit Provider Internal Medicine
DX: R94.31 Abnormal electrocardiogram [ECG] [EKG] (principal); R00.2 Palpitations; R07.9 Chest pain, unspecified
CPT/HCPCS: 93017

== ENCOUNTER → 2025-07-13 | Outpatient (CLI) | payer OTHER, SELFPAY ==
--- NOTE | 2025-07-13 10:00 | BI_ITS ---
EXAM: SCRN MAMM (CAD)W/PAULY BILAT DATE: 07/13/2025 CLINICAL HISTORY: F, Age 65 y/o , BREAST CANCER SCREENING No family history. TECHNIQUE: Procedure Code: [id number] Modality: MG Procedure: SCRN MAMM (CAD)W/PAULY BILAT COMPARISON: Prior exam(s) dated May 27, 2022.. FINDINGS: TISSUE DENSITY: There are scattered areas of fibroglandular density. Bilateral Breast Mammographic Findings: No significant masses, calcifications or other abnormalities are identified. No suspicious masses, areas of developing architectural distortion, or suspicious calcifications. There has been no significant interval change. BI/SCRN MAMM (CAD)W/PAULY BILAT IMPRESSION: Stable bilateral screening mammogram. OVERALL FINAL ASSESSMENT BI-RADS 1: NEGATIVE. RECOMMENDATION: Routine annual follow-up in 1 Year Additional Recommendation none A letter with findings and recommendations will be mailed to the patient. Reading Location: [place] [address]
== END | disposition home or self-care (01) ==
LOC: OPBI 09:48
PROVIDERS: PCP Internal Medicine; Referring Provider Internal Medicine; Visit Provider Internal Medicine
DX: Z12.31 Encounter for screening mammogram for malignant neoplasm of breast (principal)
CPT/HCPCS: 77063; 77067